=== PATIENT | female | born 1960 | race Caucasian/White ===

== ENCOUNTER → 2017-08-09 | Outpatient (CLI) | payer OTHER ==
[~2017-08-09] MED LIST: ASPIRIN325 PO; BENTYL20 MG PO; CARISOPRODOL 3350 M1 PO; COLACE100 MG PO; COZAAR 50 MG TA50 M1 PO; DESYREL50 MG PO; DIAZEPAM 10 MG10 M2; FISH OIL 1,0001 EAC5 PO; FISH OIL 1,001000 M2 PO; GINKGO BILOBA E60 MG PO; GLUCOSAMIN-CHO1 EACH PO; HYDROCHLOROTHIA25 M2 PO; HYDROCODONE-AP1 EAC6 PO; LEVOTHROID88 MCG PO; LIORESAL 10 MG10 MG PO; MOBIC15 MG PO; OXYCODONE HCL 55 MG PO; PERCOCET 5-3251 EACH; PRESERVISION T1 EACH PO; PROTONIX40 M1 PO; SYNTHROID88 MCG PO; TART CHERRY PO; TRAZODONE 150150 M1 PO; TURMERIC 500 M1 EACH PO; VALIUM5 MG PO; VICODIN 5-5001 EACH PO; VITAMIN D1000 UNI1 PO; VITAMIN E400 UNI2 PO; ZOFRAN 4 MG ORAL4 MG PO; ZOLOFT50 MG PO
--- NOTE | 2017-08-09 13:39 | EXE ---
[place] [address] STRESS ECHOCARDIOGRAM Name: JOSIAH MOSELEY Room: [facility]#: [id number] Admission: 08/09/17 Attend Phys: Alexandra Rehman Discharge: Date of : 62 Date of Service: 08/09/17 1339 Report #: [id number] THIS REPORT FOR: //name// APPROVED REPORT Study performed: 08/09/2017 11:17:18 Exam: Stress Echocardiogram Indication: Chest pain , Hypertension Patient Location: Out-Patient Stress Nurse: Maria Dolores Morales RN Supervising Physician: Farhan Cabrera MD Ht: 5 ft 4 in HR: 50 bpm BP: 126/78 mmHg Medical History Medications: HCTZ Cardiac Risk Factors: HTN, FHX of CAD Procedure The patient underwent an Exercise Stress Test using the Justin Protocol. Blood pressure, heart rate, and EKG were monitored. An Echocardiogram was performed by driver service technician in four stages in quad fashion. At peak stress, four selected images were obtained and placed side by side with resting images for comparison. Stress Test Details Stress Test: Exercise stress testing was performed using a Justin protocol. HR Resting HR: 50 bpm Max Heart Rate (APMHR): 164 bpm Max HR Achieved: 140 bpm Target HR (85% APMHR): 139 bpm % of APMHR: 85 Recovery HR: 63 bpm HR response to stress: Normal HR response to stress BP Resting BP: 126/78 mmHg Max BP: 198/62 mmHg Recovery BP: 168/74 [place] [address] STRESS ECHOCARDIOGRAM Name: JOSIAH MOSELEY Room: [facility]#: [id number] Admission: 08/09/17 Attend Phys: Alexandra Rehman Discharge: Date of : 62 Date of Service: 08/09/17 1339 Report #: [id number] Reason for Termination: Dyspnea, Maximal effort Stress Symptoms: Chest pressure during recovery Exercise duration: 4 min 27 sec Highest Stage Achieved: Stage 2: 2.5 mph at 12% grade. Exercise capacity: 6.36 METs Overall Exercise Capacity for Age: Poor Pre-Stress Echo The resting Echocardiogram showed normal left ventricular contractility with an estimated Ejection Fraction of about 55-60%. Normal wall motion in all segments on baseline images. Post-Stress Echo The stress Echocardiogram showed normal left ventricular contractility with an estimated Ejection Fraction of about >70%. Normal augmentation of wall motion in all segments on post stress images. Clinical Normal augmentation of myocardial wall segments using a 17 segment model. Conclusion Clinical Response: Equivocal Exercise Capacity: Below Average Stress ECG Response: Non-ischemic Stress Echo Images: Non-ischemic Other Information Study Quality: Fair <ELECTRONICALLY SIGNED> By: Farhan Cabrera MD, [facility] 08/09/17 1339 1339 Farhan Cabrera MD, [facility] /INF
== END ==
LOC: M.CRD 10:39
DX: I10 Essential (primary) hypertension (principal); R07.9 Chest pain, unspecified

== ENCOUNTER 2017-11-13 16:09 | Emergency (ER) | payer OTHER ==
[~2017-11-13] VITALS: Ht 162.6 cm; Wt 99.8 kg
[~2017-11-13 16:09] MED LIST changes: -LIORESAL 10 MG10 MG PO
[2017-11-13 16:21] LABS: URINE BILIRUBIN NEGATIVE (Negative); URINE BLOOD NEGATIVE (Negative); URINE CLARITY CLEAR; URINE COLOR YELLOW; URINE GLUCOSE-RANDOM NEGATIVE (Negative); URINE KETONES NEGATIVE (Negative); URINE LEUKOCYTES-REFLEX NEGATIVE (Negative); URINE NITRITE-REFLEX NEGATIVE (Negative); URINE PROTEIN NEGATIVE (Negative); URINE UROBILINOGEN 0.2 E.U./dl (0.2-1.0)
[2017-11-13] MEDS ORDERED: VALIUM5 MG PO (16:23)
[2017-11-13] MEDS ORDERED: LIORESAL 10 MG10 MG PO (16:25)
[2017-11-13] MEDS ORDERED: HYDROCHLOROTHIA25 M2 PO (16:25)
[2017-11-13 17:05] LABS: ABSOLUTE EOSINOPHILS 0.2 thou/uL (0.0-0.7); ABSOLUTE LYMPHOCYTES 1.7 thou/uL (0.8-5.3); ABSOLUTE MONOCYTES 0.4 thou/uL (0.0-1.2); ABSOLUTE NEUTROPHILS 2.8 thou/uL (1.6-8.1); BASOPHILS 0.4 %; EOSINOPHILS 4.5 %; HEMATOCRIT 41.7 % (37.0-47.0); HEMOGLOBIN 13.7 gm/dL (12.0-15.0); LYMPHOCYTES 32.4 %; MCHC 32.9 g/dL (28.0-37.0); MCV 88.2 fL (80.0-100.0); MONOCYTES 8.6 %; MPV 7.4 fl. (7.2-11.1); NUCLEATED RBCS 0 /100WBC; PLATELET COUNT* 198 thou/uL (150-400); POLYS 54.1 %; RBC 4.72 mil/uL (4.20-5.00); RDW-CV 12.9 % (10.5-14.5); WBC 5.2 thou/uL (4.0-11.0)
[2017-11-13 17:08] LABS: CALCIUM 8.3 mg/dL (8.5-10.1); CREATININE 0.9 mg/dL (0.6-1.3); POTASSIUM 3.3 mmol/L (3.5-5.1)
[2017-11-13 17:12] LABS: ALBUMIN 3.4 g/dL (3.4-5.0); TOTAL BILIRUBIN 0.4 mg/dL (<0.1-1.0); TOTAL PROTEIN 6.8 g/dL (6.4-8.2)
[2017-11-13 17:17] LABS: LIPASE 94 U/L (73-393); TROPONIN-I LEVEL <0.06 ng/mL (<0.06)
[2017-11-13 19:00] VITALS: BP 112/62
--- NOTE | 2017-11-14 11:02 | EKG ---
[place] [address] ELECTROCARDIOGRAM REPORT Name: JOSIAH MOSELEY Room: [facility]#: [id number] Admission: 11/13/17 Attend Phys: Discharge: 11/13/17 Date of : 62 Report #: [id number] THIS REPORT FOR: //name// [facility] ED Test Date: 2017-11-13 Test Time: 16:37:59 Pat Name: JOSIAH LORELEI Department: Room: Gender: F Zigzag Appliquer: Lesa MENDEZ : 1960 Requested By: Renee Olson Order Number: [id number] MD: Eber Carlos Measurements Intervals [place] Rate: 60 P: 13 WV: 165 QRS: -26 QRSD: 97 T: 5 QT: 414 QTc: 414 Interpretive Statements Sinus arrhythmia Abnormal R-wave progression, late transition Left ventricular hypertrophy Compared to ECG 02/03/2017 09:04:27 Left ventricular hypertrophy now present Electronically Signed On 11-14-2017 11:01:54 CDT by Eber Carlos [email or web address] <ELECTRONICALLY SIGNED> By: Eber Carlos MD, [facility] 11/14/17 1101 [id number] [id number] Eber Carlos MD, [facility] /EPI
== END 2017-11-13 19:00 | disposition home or self-care (01) ==
LOC: M.ERS 16:09
PROVIDERS: Nurse Practitioner Family
DX: E87.6 Hypokalemia (principal); B34.9 Viral infection, unspecified; I10 Essential (primary) hypertension

== ENCOUNTER → 2018-04-24 | Outpatient (CLI) | payer OTHER ==
[~2018-04-24] MED LIST changes: +LIORESAL 10 MG10 MG PO
== END ==
LOC: M.RAD 15:34
DX: R07.9 Chest pain, unspecified (principal)

== ENCOUNTER → 2018-05-02 | Outpatient (CLI) | payer OTHER | LOC: M.CT 08:00 | DX: Z13.6 Encounter for screening for cardiovascular disorders (principal) ==

== ENCOUNTER 2018-06-10 22:53 | Emergency (ER) | payer OTHER ==
[~2018-06-10] VITALS: Ht 160 cm; Wt 90.7 kg
[2018-06-10 23:23] LABS: ABSOLUTE BASOPHILS 0.1 thou/uL (0.0-0.2); ABSOLUTE EOSINOPHILS 0.3 thou/uL (0.0-0.7); ABSOLUTE LYMPHOCYTES 3.6 thou/uL (0.8-5.3); ABSOLUTE MONOCYTES 0.6 thou/uL (0.0-1.2); BASOPHILS 0.8 %; EOSINOPHILS 2.5 %; HEMATOCRIT 44.7 % (37.0-47.0); HEMOGLOBIN 14.8 gm/dL (12.0-15.0); LYMPHOCYTES 34.2 %; MCH 29.1 pg (26.0-34.0); MCHC 33.2 g/dL (28.0-37.0); MCV 87.8 fL (80.0-100.0); MPV 6.9 fl. (7.2-11.1); NUCLEATED RBCS 0 /100WBC; PLATELET COUNT* 296 thou/uL (150-400); POLYS 56.5 %; RBC 5.09 mil/uL (4.20-5.00); RDW-CV 13.7 % (10.5-14.5); WBC 10.6 thou/uL (4.0-11.0)
[2018-06-10 23:31] LABS: ALBUMIN 3.8 g/dL (3.4-5.0); POTASSIUM 3.3 mmol/L (3.5-5.1); TOTAL BILIRUBIN 0.3 mg/dL (<0.1-1.0); TOTAL PROTEIN 7.7 g/dL (6.4-8.2)
[2018-06-11 00:39] LABS: URINE BILIRUBIN NEGATIVE (Negative); URINE BLOOD NEGATIVE (Negative); URINE CLARITY CLEAR; URINE COLOR YELLOW; URINE GLUCOSE-RANDOM NEGATIVE (Negative); URINE KETONES NEGATIVE (Negative); URINE LEUKOCYTES-REFLEX NEGATIVE (Negative); URINE NITRITE-REFLEX NEGATIVE (Negative); URINE PROTEIN NEGATIVE (Negative); URINE SPECIFIC GRAVITY <= 1.005 (1.005-1.030); URINE UROBILINOGEN 0.2 E.U./dl (0.2-1.0)
[2018-06-11] MEDS ORDERED: COMPAZINE10 MG PO (02:44)
[2018-06-11 03:03] VITALS: BP 110/66
== END 2018-06-11 02:45 | disposition home or self-care (01) ==
LOC: M.ERS 22:53
PROVIDERS: Emergency Medicine
DX: R10.13 Epigastric pain (principal); R11.2 Nausea with vomiting, unspecified; E11.9 Type 2 diabetes mellitus without complications; I10 Essential (primary) hypertension; F32.9 Major depressive disorder, single episode, unspecified; F41.9 Anxiety disorder, unspecified; Z87.442 Personal history of urinary calculi; Z90.49 Acquired absence of other specified parts of digestive tract

== ENCOUNTER 2018-12-04 20:04 | Emergency (ER) | payer OTHER ==
[~2018-12-04] VITALS: Ht 162.6 cm; Wt 90.7 kg
[~2018-12-04 20:04] MED LIST changes: +COMPAZINE10 MG PO
[2018-12-04] MEDS ORDERED: ELIQUIS2.5 MG PO (20:17)
[2018-12-04] MEDS ORDERED: NEURONTIN 300300 M1 PO (20:17)
[2018-12-04 20:45] LABS: HEMATOCRIT 32.7 % (37.0-47.0); HEMOGLOBIN 11.2 gm/dL (12.0-15.0); MCHC 34.1 g/dL (28.0-37.0); MCV 88.1 fL (80.0-100.0); MPV 6.9 fl. (7.2-11.1); NUCLEATED RBCS 0 /100WBC; PLATELET COUNT* 292 thou/uL (150-400); RBC 3.71 mil/uL (4.20-5.00); RDW-CV 13.4 % (10.5-14.5); WBC 8.9 thou/uL (4.0-11.0)
[2018-12-04 20:52] LABS: CALCIUM 8.8 mg/dL (8.5-10.1); CREATININE 0.9 mg/dL (0.6-1.3); POTASSIUM 5.1 mmol/L (3.5-5.1)
[2018-12-04 20:57] LABS: ALBUMIN 2.8 g/dL (3.4-5.0); TOTAL BILIRUBIN 0.5 mg/dL (<0.1-1.0); TOTAL PROTEIN 6.6 g/dL (6.4-8.2)
[2018-12-04 21:32] LABS: ABSOLUTE EOSINOPHILS 0.9 thou/uL (0.0-0.7); ABSOLUTE LYMPHOCYTES 4.3 thou/uL (0.8-5.3); ABSOLUTE MONOCYTES 0.4 thou/uL (0.0-1.2); ABSOLUTE NEUTROPHILS 3.3 thou/uL (1.6-8.1)
[2018-12-04 21:33] LABS: PLATELET ESTIMATE ADEQUATE
[2018-12-04 22:03] VITALS: BP 122/65
== END 2018-12-04 22:06 | disposition home or self-care (01) ==
LOC: M.ERS 20:04
PROVIDERS: Emergency Medicine
DX: G89.18 Other acute postprocedural pain (principal); M25.552 Pain in left hip; Z90.49 Acquired absence of other specified parts of digestive tract; Z98.84 Bariatric surgery status; Z96.643 Presence of artificial hip joint, bilateral; Z98.890 Other specified postprocedural states

== ENCOUNTER 2020-07-12 20:05 | Emergency (ER) | payer OTHER ==
[~2020-07-12] VITALS: Ht 162.6 cm; Wt 99.8 kg
[~2020-07-12 20:05] MED LIST changes: +ELIQUIS2.5 MG PO; +NEURONTIN 300300 M1 PO
[2020-07-12] MEDS ORDERED: MELOXICAM7.5 MG PO (20:17)
[2020-07-12] MEDS ORDERED: GLIPIZIDE 10 MG10 MG PO (20:18)
[2020-07-12] MEDS ORDERED: DIVIGEL1 EAC1 PO (20:21)
[2020-07-12] MEDS ORDERED: ESTROGEL50 GM PO (20:22)
[2020-07-12 20:33] LABS: ABSOLUTE BASOPHILS 0.1 thou/uL (0.0-0.2); ABSOLUTE EOSINOPHILS 0.4 thou/uL (0.0-0.7); ABSOLUTE LYMPHOCYTES 2.8 thou/uL (0.8-5.3); ABSOLUTE MONOCYTES 0.6 thou/uL (0.0-1.2); ABSOLUTE NEUTROPHILS 5.6 thou/uL (1.6-8.1); BASOPHILS 0.9 %; EOSINOPHILS 4.1 %; HEMATOCRIT 41.9 % (37.0-47.0); HEMOGLOBIN 14.2 gm/dL (12.0-15.0); LYMPHOCYTES 29.7 %; MCH 30.2 pg (26.0-34.0); MCHC 33.8 g/dL (28.0-37.0); MCV 89.2 fL (80.0-100.0); MONOCYTES 6.2 %; MPV 7.2 fl. (7.2-11.1); NUCLEATED RBCS 0 /100WBC; PLATELET COUNT* 300 thou/uL (150-400); POLYS 59.1 %; RDW-CV 13.2 % (10.5-14.5); WBC 9.5 thou/uL (4.0-11.0)
[2020-07-12 20:42] LABS: CALCIUM 8.6 mg/dL (8.5-10.1); CREATININE 0.9 mg/dL (0.6-1.3)
[2020-07-12 20:43] LABS: POTASSIUM 4.3 mmol/L (3.5-5.1)
[2020-07-12 20:45] LABS: PROTIME 10.5 Seconds (9.20-11.50)
[2020-07-12 20:53] LABS: ALBUMIN 3.3 g/dL (3.4-5.0); MAGNESIUM 1.8 mg/dL (1.8-2.4); TOTAL BILIRUBIN 0.4 mg/dL (<0.1-1.0); TOTAL PROTEIN 6.9 g/dL (6.4-8.2)
[2020-07-12 23:30] VITALS: BP 116/60
--- NOTE | 2020-07-14 15:20 | EKG ---
[place] [address] ELECTROCARDIOGRAM REPORT Name: JOSIAH MOSELEY Room: 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 : 1960 Requested By: Shannon Myers Order Number: [id number] MD: Farhan Cabrera Measurements Intervals [place] Rate: 51 P: 10 [place]: 159 QRS: -30 QRSD: 96 T: 29 QT: 413 QTc: 381 Interpretive Statements Sinus rhythm Probable left atrial enlargement Left axis deviation Compared to ECG 11/13/2017 16:37:59 Left-axis deviation now present Sinus arrhythmia no longer present Left ventricular hypertrophy no longer present Electronically Signed On 07-14-2020 15:20:12 CDT by Farhan Cabrera [email or web address] <ELECTRONICALLY SIGNED> By: Farhan Cabrera MD, [facility] 07/14/20 1520 10 10 Farhan Cabrera MD, [facility] /EPI
== END 2020-07-12 23:30 | disposition home or self-care (01) ==
LOC: M.ERS 20:05
PROVIDERS: Emergency Medicine
DX: R07.89 Other chest pain (principal); Z90.49 Acquired absence of other specified parts of digestive tract; Z96.643 Presence of artificial hip joint, bilateral; Z96.652 Presence of left artificial knee joint; Z79.899 Other long term (current) drug therapy